=== PATIENT | male | born 1990 | race Two or more races ===

== ENCOUNTER 2024-06-13 23:19 | Emergency (ER) | payer MEDICAID, SELFPAY ==
[2024-06-13 23:20] VITALS: BMI 35.5
[2024-06-13 23:54] VITALS: BP 161/97; PULSE 113; RESP 18; TEMP 37.3; O2SAT 98
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
--- NOTE | 2024-06-14 00:58 | PRELIM_ITS ---
CT scan of the lumbar spine without intravenous contrast (axial sections with sagittal and coronal re formats) June 14, 2024 0025 hours Clinical History: Back pain Comparison: None Findings:There is n o evidence of acute fracture or traumatic subluxation. The alignment of the lumbar spine is within no rmal limits. The vertebral body heights are normal. There are small multilevel small marginal osteoph ytes with bilateral facet arthrosis. There is diffuse disc bulge with small posterior osteophyte at t he L3-4 level causing severe spinal canal narrowing. There is a diffuse disc bulge at the L4-5 level causing mild spinal canal narrowing. There is a diffuse disc bulge at the L5-S1 level causing mild sp inal canal and [id number] bilateral neural foraminal narrowing. The soft tissues are unremarkab le.Impression:1. No evidence of acute fracture or traumatic subluxation.2. Lumbar spondylosis with mu ltilevel degenerative disc disease, most prominent at the L3-4 level with severe spinal canal narrowi ng.3. Other findings as described above. Suggest clinical correlation and follow up accordingly. Re port Electronically Signed By: Eleazar Aquino 06/14/2024 12:58:21 AM [EST]
[2024-06-14] MEDS: DIAZEPAM 5 MG TABLET PO (01:24)
[2024-06-14] MEDS: KETOROLAC INJ 60 MG/2 ML VIAL 30 MG IM (01:25)
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
== END 2024-06-14 02:37 | disposition home or self-care (01) ==
PROVIDERS: Emergency Provider Emergency Medicine; PCP Family Medicine
DX: M51.360 Other intervertebral disc degeneration, lumbar region with discogenic back pain only (principal); M51.370 Other intervertebral disc degeneration, lumbosacral region with discogenic back pain only; M47.816 Spondylosis without myelopathy or radiculopathy, lumbar region; M48.061 Spinal stenosis, lumbar region without neurogenic claudication
CPT/HCPCS: 72131; 96372; 99284; J1885; A9270

== ENCOUNTER 2024-06-22 20:31 | Emergency (ER) | payer MEDICAID, SELFPAY ==
[2024-06-22 20:31] VITALS: BMI 34.4
--- NOTE | 2024-06-22 21:17 | PC.NURSE ---
called for pt from lobby/outside, no answerx1@[id number]
--- NOTE | 2024-06-22 21:41 | PC.NURSE ---
called for pt from lobby/outside, no answerx2@ [id number]
--- NOTE | 2024-06-22 22:04 | PC.NURSE ---
called for pt from lobby/outside, no answerx3@ [phone]
--- NOTE | 2024-06-22 22:12 | PC.NURSE ---
N/A FROM [id number] [id number]
== END 2024-06-22 22:17 | disposition left against medical advice (07) ==
LOC: SERX 22:09
PROVIDERS: Emergency Provider Emergency Medicine
DX: Z53.21 Procedure and treatment not carried out due to patient leaving prior to being seen by health care provider (principal)